=== PATIENT | male | born 1980 | race Caucasian/White ===

== ENCOUNTER → 2020-11-10 08:23 | Outpatient (CLI) | payer OTHER, SELFPAY ==
[2020-11-10 08:26] LABS: Microscopic, Urine URINE MICROSCOPIC (MICROSCOPIC)
[2020-11-10 09:08] LABS: Basophils # 0.1 K/mm3 (0-0.2); Basophils % 0.8 % (0.1-2.0); Eosinophils # 0.3 K/mm3 (0.0-0.4); Eosinophils % 4.4 % (0.1-12.0); Hematocrit 50.2 % (42.0-52.0); Lymphocytes # 1.8 K/mm3 (0.7-4.5); Lymphocytes % 24.2 % (10-50); Mean Corpuscular HGB Conc 31.8 g/dL (31.8-35.4); Mean Corpuscular Hemoglobin 32.9 pg (27.0-31.2); Mean Corpuscular Volume 103.4 fl (80-94); Mean Platelet Volume 9.2 fl (7.4-10.4); Monocytes # 0.8 K/mm3 (0.1-1.0); Monocytes % 11.2 % (1.7-9.3); Neutrophils # 4.3 K/mm3 (1.8-7.8); Neutrophils % 59.4 % (37.0-80.0); Platelet Count 274 K/mm3 (142-424); Red Blood Count 4.85 M/mm3 (4.60-6.20); Red Cell Distribution Width 13.1 % (11.5-17.5); White Blood Count 7.2 K/mm3 (4.8-10.8)
[2020-11-10 09:45] LABS: Anion Gap 10.3 mEq/L (5-15); Blood Urea Nitrogen 18 mg/dl (9-20); Calcium 9.3 mg/dl (8.4-10.2); Carbon Dioxide 32 mmol/L (22.0-30.0); Chloride 106 mmol/L (98-107); Estimated Glomerular Filt Rate 82 ml/min (>60); GFR (African American) 99 ML/MIN (>60); Glucose 96 mg/dl (74-100); Potassium 5.3 mmoL/L (3.5-5.1); Sodium 143 mmol/L (136-145)
[2020-11-10 09:55] LABS: Appearance,Urine CLOUDY (Clear); Bilirubin,Urine Negative (Negative); Blood, Urine Negative (Negative); Color,Urine YELLOW (Yellow); Glucose,Urine (UA) Negative (Negative); Ketones,Urine Negative (Negative); Leukocyte Esterase,Urine Negative (Negative); Nitrate,Urine Negative (Negative); PH,Urine 7.5 (5.0-8.5); Protein,Urine Negative (Negative); Specific Gravity, Urine 1.015 (1.005-1.030); Urobilinogen,Urine 0.2 EU/dl (0.2)
== END ==
LOC: LAB 08:23
PROVIDERS: Visit Provider Surgery
DX: Z01.812 Encounter for preprocedural laboratory examination (principal); Z11.52 Encounter for screening for COVID-19; U07.1 COVID-19; K40.90 Unilateral inguinal hernia, without obstruction or gangrene, not specified as recurrent
CPT/HCPCS: 36415; 80048; 81001; 85025; U0003

== ENCOUNTER 2020-12-17 09:24 | Day surgery (SDC) | payer OTHER, SELFPAY ==
[2020-12-16 09:31] VITALS: BMI 20.4
[2020-12-17] VITALS (11 sets, daily range): BP systolic 124–149; BP diastolic 61–99; PULSE 72–100; RESP 14–18; TEMP 36.2–37.2; O2SAT 92–100
--- NOTE | 2020-12-17 11:20 | P.PN_ITS ---
[facility] Anesthesia Checklist - Patient Identification Patient Identification: Arm Band, Verbal (Name & ) - Structural Data Admitted From: Home Planned Operative Procedure/s: Left Inguinal Hernia Repair Consent for Planned Operative Procedure(s) Verified: Yes Verified Documents: Surgical Consent - NPO Status Verified Time NPO: 00:00 - Additional verifications Anesthesia Reactions: No Hx Blood Transfusions: No Blood Transfusion Reaction: No - Cardiovascular Assessment Heart Sounds: S1 & S2 Pulse Rhythm: Regular - Airway Assessment TMJ Mobility Assessed: Yes - Neurological Assessment Level of Consciousness: Awake, Alert, Appropriate - Anesthesia Plan Anesthesia Risk discussed: Yes Anesthesia Type: General [facility] History Medical History: Denies:: Cancer, Diabetes Mellitus Type 1, Diabetes Mellitus Type 2, Internal Pacemaker, MRSA, Seizures *Have you ever received a pneumonia vaccine?: No *Have you received a flu vaccine this season?: No Other Medical History: Denies: Blood Transfusion Reaction Anesthesia experience/problems:: No issues Other Surgeries: Yes: No Previous Surgery. No: Pacemaker Amputation: No Fractures: No - *Social History Last grade of school completed: Some college Smoking Status: Current every day smoker Tobacco Type: cigarettes # Packs/Day (cigarettes): 1 Alcohol Intake: current Alcohol Intake Frequency:: 3 or more drinks per day Substance Use Type: marijuana *Occupational Status:: employed Housing: house Household Members: significant other, family *Travel in the last 8 weeks: None Family Hx:: No significant family history
--- NOTE | 2020-12-17 12:47 | HMH.OPNOTE ---
Date of procedure: 12/17/20 Pre-op Diagnosis:: Left inguinal hernia Post-op Diagnosis:: Complex sliding left inguinal hernia Procedure performed:: Open left inguinal hernia repair Surgeon:: Agapito Mathias MD Anesthesia: LMA Estimated blood loss (mL): 15 Operative findings:: Severe adhesions throughout inguinal canal Complex sliding hernia (colon incorporated close to distal margin of hernia sac) Operative note:: After informed consent was obtained the patient was taken to the operating room and placed in the supine position. General anesthesia with laryngeal mask airway was achieved. His abdomen and groin/scrotum were prepped and draped in a sterile fashion. After infiltration with local anesthetic an oblique left groin incision was made. The deep subcutaneous tissue was dissected with electrocautery through Bonnie's fascia to the level of the external aponeurosis. The external aponeurosis was sharply opened to the level of the external ring. The contents of the canal were carefully elevated. Significant adhesions noted throughout the canal. Dissection was very difficult and the vas deferens and vessels were densely adhered to all surrounding tissue including hernia sac and cremasteric muscles. Careful dissection did reveal a hernia sac that was opened along its distal margin. A sliding hernia was immediately noted with incorporation of the colon margin close to the distal projection of the hernia sac. No obvious colonic injury was noted. The defect was closed with Vicryl suture and the sac/colon was inverted into the abdominal cavity. An extra-large PerFix plug was secured in position utilizing interrupted Ethibond. The PerFix overlay was then secured in position with interrupted Ethibond to the shelving edge inferiorly and fascial margin superiorly. The wound was irrigated. The external aponeurosis was reapproximated with running Vicryl suture. Bonnie's fascia was reapproximated in the same manner. Skin was closed with 3-0 Stratafix. Sterile dressings were applied and the patient was transferred to recovery in stable condition after removal of his laryngeal mask airway. Condition: stable Disposition: PACU Specimens:: None Complications:: No immediate
--- NOTE | 2020-12-17 13:01 | P.PN_ITS ---
[facility] Anesthesia Record Part I Intake, IV Amount: 800 Estimated blood loss (mL): 10 Urine output (mL): 0 Blood Pressure: 148/99 SaO2: 100 Pulse Rate: 96 Respiratory Rate: 14 Temperature: 98.9 F Patient is:: Drowsy Stable to PACU at:: 12:55
--- NOTE | 2020-12-17 13:17 | SUR.OPER ---
Urinary catheter inserted without difficulty. No urine noted, however assessed by RN and MD who concluded that pt recently voided. Balloon inflated without resistance. Upon completion of case, small amount of blood noted in catheter tubing. Again, assessed by surgeon proceed with removing catheter. Balloon deflated, catheter removed without resistance. Small amount of bleeding from penis after removal. Surgeon present after removal, noted blood amount was a small amount of bleeding . Per Dr. Mathias okay to discharge home if pt is able to void prior to discharge. If pt unable to void, contact Dr. Garduno. Per Dr. Mathias, Dr. Garduno is aware. Occasional drops of blood from penis noted at 1325 during PACU assessment.
--- NOTE | 2020-12-17 13:36 | SUR.PHASEI ---
1324- report called to khurram cheung in post op. 1255- pt has small amount of bleeding coming from the urethra after difficult catheter placement in the OR. aware of this. Pt is to void before able to discharge, khurram cheung notified of this in report.
--- NOTE | 2020-12-21 08:24 | HMH.ANESII ---
[facility] Anesthesia Record Part II Discharge Time: 13:25 Destination: Surgical Day Care (OP Surgery) PACU nurse assessment reviewed?: Yes Patient Condition:: Good Anesthesia Complications:: None Swallowing reflex intact?: Yes Cyanosis?: No Blood Pressure: 133/77 Pulse Rate: 95 Temperature: 98.6 F Mental Status: Alert & Oriented Pain level:: 3 Nausea and/or vomitting:: None Intake, IV Amount: 0
[2020-12-21 08:25] VITALS: BP 133/77; PULSE 95; TEMP 37
== END 2020-12-17 14:45 | disposition home or self-care (01) ==
LOC: OR 09:26
PROVIDERS: PCP Family Medicine; Visit Provider Surgery
PROC: (CPT 49525; principal; 2020-12-17 11:00)
DX: K40.90 Unilateral inguinal hernia, without obstruction or gangrene, not specified as recurrent (principal); K66.0 Peritoneal adhesions (postprocedural) (postinfection); Z72.0 Tobacco use; F12.90 Cannabis use, unspecified, uncomplicated
CPT/HCPCS: 49525; 96374; J2405

== ENCOUNTER 2020-12-19 00:38 | Emergency (ER) | payer OTHER, SELFPAY ==
[2020-12-19 00:45] VITALS: BP 146/98; PULSE 92; RESP 16; TEMP 36.9; O2SAT 99; BMI 21.1
[2020-12-19 01:00] VITALS: BP 117/70; PULSE 75; RESP 16; O2SAT 95
--- NOTE | 2020-12-19 01:03 | CT_ITS ---
PROCEDURE INFORMATION: Exam: CT Abdomen And Pelvis With Contrast Exam date and time: 12/19/2020 1:03 AM Age: 40 years old Clinical indication: Other: Bleeding from penis sp hernia surgery 12/18/20; Prior surgery; Surgery date: Post-operative (0-2 days); Surgery type: Hernia repair left low quad yesterday 12/18/2020; Patient HX: Bleeding from penis S/P surgery yesterday; Additional info: Post op TECHNIQUE: Imaging protocol: Computed tomography of the abdomen and pelvis with contrast. Radiation optimization: All CT scans at this facility use at least one of these dose optimization techniques: automated exposure control; mA and/or kV adjustment per patient size (includes targeted exams where dose is matched to clinical indication); or iterative reconstruction. Contrast material: ISOVUE; Contrast volume: 75 ml; Contrast route: IV; COMPARISON: No relevant prior studies available. FINDINGS: Lungs: Dependent bilateral lung base opacities favor atelectasis. Left lateral basilar segmental atelectasis. Liver: Normal. No mass. Gallbladder and bile ducts: Normal. No calcified stones. No ductal dilation. Pancreas: Normal. No ductal dilation. Spleen: Normal. No splenomegaly. Adrenal glands: Normal. No mass. Kidneys and ureters: No hydronephrosis. Stomach and bowel: Unremarkable. No obstruction. No mucosal thickening. Appendix: No evidence of appendicitis. Intraperitoneal space: Unremarkable. No free air. No significant fluid collection. Vasculature: Unremarkable. No abdominal aortic aneurysm. Lymph nodes: Unremarkable. No enlarged lymph nodes. Urinary bladder: Unremarkable as visualized. Reproductive: Abnormal hyperattenuation involving the bulbar urethra extending to the meatus. Bones/joints: Mild loss of intervertebral disc space with degenerative changes at L5-S1. Soft tissues: Emphysematous changes present along the left rectus extending to the left inguinal canal, with air-fluid levels measuring 2.8 x 3.6 x 4.3 cm. . Other findings: Low volume fluid noted at the posterior pelvis. IMPRESSION: 1. Abnormal hyperattenuation involving the bulbar urethra extending to the meatus, favoring hemorrhage. Findings may represent ureteral injury. Recommend urology consultation. 2. Emphysematous changes present along the left rectus extending to the left inguinal canal, with air-fluid levels measuring 2.8 x 3.6 x 4.3 cm.
[2020-12-19 01:10] LABS: Basophils # 0.1 K/mm3 (0-0.2); Basophils % 0.8 % (0.1-2.0); Eosinophils # 0.5 K/mm3 (0.0-0.4); Eosinophils % 3.9 % (0.1-12.0); Hematocrit 45.5 % (42.0-52.0); Hemoglobin 14.6 g/dL (14.1-18.0); Lymphocytes # 2.7 K/mm3 (0.7-4.5); Mean Corpuscular Hemoglobin 32.8 pg (27.0-31.2); Mean Corpuscular Volume 102.7 fl (80-94); Mean Platelet Volume 7.9 fl (7.4-10.4); Monocytes # 0.7 K/mm3 (0.1-1.0); Monocytes % 5.8 % (1.7-9.3); Neutrophils # 7.7 K/mm3 (1.8-7.8); Neutrophils % 66.5 % (37.0-80.0); Platelet Count 314 K/mm3 (142-424); Red Blood Count 4.43 M/mm3 (4.60-6.20); Red Cell Distribution Width 12.7 % (11.5-17.5); White Blood Count 11.6 K/mm3 (4.8-10.8)
[2020-12-19 01:19] LABS: Alanine Aminotransferase 13 U/L (12-78); Albumin Level 4.2 g/dl (3.5-5.0); Albumin/Globulin Ratio 1.6 (1.1-1.8); Alkaline Phosphatase 71 U/L (38-126); Anion Gap 9.5 mEq/L (5-15); Aspartate Amino Transferase 31 U/L (17-59); Blood Urea Nitrogen 8 mg/dl (9-20); Calcium 8.5 mg/dl (8.4-10.2); Carbon Dioxide 28 mmol/L (22.0-30.0); Chloride 106 mmol/L (98-107); Creatinine Clearance Estimated 141 mL/min (50-200); Estimated Glomerular Filt Rate 124 ml/min (>60); GFR (African American) 150 ML/MIN (>60); Globulin 2.7 g/dL (1.3-3.2); Glucose 92 mg/dl (74-100); Potassium 3.5 mmoL/L (3.5-5.1); Sodium 140 mmol/L (136-145); Total Protein,Serum 6.9 g/dl (6.3-8.2)
[2020-12-19 01:20] LABS: Bilirubin,Total 0.1 mg/dl (0.2-1.3)
[2020-12-19 01:24] LABS: C-Reactive Protein 19.7 mg/L (0-4)
[2020-12-19 01:35] LABS: Erythrocyte Sedimentation Rate 10 mm/hr (0-15)
[2020-12-19 01:38] LABS: Procalcitonin 0.056 ng/mL (0.0-2.0)
--- NOTE | 2020-12-19 01:46 | HMH.EDUROGM ---
ED Disposition Clinical Impression: Hematuria Qualifiers: Hematuria type: gross Qualified Code(s): R31.0 - Gross hematuria Disposition: Home, Self-Care Condition on Discharge: Good Instructions: DI for Hematuria Additional Instructions: fluids and recheck if needed and call dr polk sunday am Prescriptions: levoFLOXacin [Levaquin 500mg tab] 500 mg PO DAILY #7 tab Transmission Status: Pending to [facility] #[id number] Referrals: Husam Damico MD [Primary Care Provider] - James Polk MD [Staff Physician] - - Critical Care Critical Care Time: No Attestation: On 12/19/20, the high probability of a clinically significant, sudden or life threatening deterioration of the following system(s) required my full and direct attention, intervention and personal management. The time I documented below is in addition to time spent performing reported procedures but includes the following listed in this critical care notation. Medical Decision Making - Medical Records Medical records reviewed: Yes: I reviewed the patient's medical records. - Marek Inquiry Pt receiving controlled substance: No Vital Signs: 12/19/20 00:45 12/19/20 01:00 Temperature 98.5 F Temperature Source Oral Pulse Rate 75 Pulse Rate [Apical] 92 H Respiratory Rate 16 16 Blood Pressure 117/70 Blood Pressure [Right Arm] 146/98 H Blood Pressure Mean [Right Arm] 114 Blood Pressure Source [Right Arm] Automatic Cuff Blood Pressure Position [Right Arm] Sitting 02 Sat by Pulse Oximetry 99 95 Oxygen Delivery Method Room Air - Lab Data Lab results reviewed: Yes: I reviewed the patient's lab results. Lab Results 12/19/20 00:46: WBC 11.6 H, RBC 4.43 L, Hgb 14.6, Hct 45.5, MCV 102.7 H, MCH 32.8 H, MCHC 32.0, RDW 12.7, Plt Count 314, MPV 7.9, Neut % (Auto) 66.5, Lymph % (Auto) 23.0, Buchanan % (Auto) 5.8, Eos % (Auto) 3.9, Baso % (Auto) 0.8, Neut # (Auto) 7.7, Lymph # (Auto) 2.7, Buchanan # (Auto) 0.7, Eos # (Auto) 0.5 H, Baso # (Auto) 0.1, ESR 10 12/19/20 00:46: Sodium 140, Potassium 3.5, Chloride 106, Carbon Dioxide 28, Anion Gap 9.5, BUN 8 L, Creatinine 0.70, Estimated Creat Clear 141, Estimated GFR 124, Est GFR ( Amer) 150, Glucose 92, Calcium 8.5, Total Bilirubin 0.1 L, AST 31, ALT 13, Alkaline Phosphatase 71, C-Reactive Protein 19.7 H, Total Protein 6.9, Albumin 4.2, Globulin 2.7, Albumin/Globulin Ratio 1.6, Procalcitonin 0.056 Result diagrams: 12/19/20 00:46 12/19/20 00:46 Orders (Tests/Meds): ED MEDICATIONS Generic Name Dose Route Start Last Admin Trade Name Freq PRN Reason Stop Dose Admin Sodium Chloride 1,000 mls @ 999 mls/hr 12/19/20 01:00 12/19/20 01:01 Sod Chlor 0.9% 1000ml Bag IV 12/19/20 02:00 999 mls/hr .[id number] RAYNE Administration Discontinued Medications Generic Name Dose Route Start Last Admin Trade Name Freq PRN Reason Stop Dose Admin Iopamidol 75 ml 12/19/20 02:34 12/19/20 02:35 Iopamidol-370 (76%);100ml Bottle IV 12/19/20 02:35 75 ml ONCE ONE Administration Sodium Chloride 10 ml 12/19/20 02:34 12/19/20 02:35 Sodium Chloride 0.9% 10ml Syr (Rad Only) IV 12/19/20 02:35 10 ml ONCE ONE Administration - CT Data CT Scan: Abdomen, Pelvis Time Received: 03:[address] Reviewed: Yes: I have viewed the radiologist's interpretation Preliminary Findings: Normal/NAD - Physician Consults Physician Consulted: felicitas Reason -: Pt condition Medical Decision Narrative: has possible urethral injury and can urinate and discussed with dr polk - Male Urogenital HPI - General Chief complaint: Urogenital-Male Stated complaint: Bleeding from hernia surgery Time Seen by Provider: 12/19/20 01:00 Mode of Arrival: Ambulatory Source of Information: Patient, Medical Record Limitations: No Limitations Description of Symptoms (Recalled from ER Triage Doc. by RN): patient states that he had a right sided hernia surgery by on sunday. States that he was told there was a compl
--- NOTE | 2020-12-19 02:12 | PC.NURSE ---
PATIENT TO CT.
[2020-12-19 03:56] VITALS: BP 124/78; PULSE 82; RESP 19; TEMP 36.6; O2SAT 98
== END 2020-12-19 04:04 | disposition home or self-care (01) ==
PROVIDERS: Emergency Provider Emergency Medicine; PCP Family Medicine
DX: R31.0 Gross hematuria (principal); L76.22 Postprocedural hemorrhage of skin and subcutaneous tissue following other procedure
CPT/HCPCS: 74177; 80053; 84145; 85025; 85651; 86140; 96365; 99283; Q9967